=== PATIENT | female | born 1965 | race Caucasian/White ===

== ENCOUNTER → 2017-05-14 | Outpatient (CLI) | payer SELFPAY ==
[~2017-05-14] MED LIST: ADULT LOW DOSE81 M1 PO; ANAPROX DS550 M1 PO; Aldactone PO; Aspirin E.C. PO; CARDURA2 M1 PO; CRESTOR5 MG PO; CYMBALTA60 MG PO; Cymbalta PO; DESYREL100 MG PO; ENDOCET 5-3251 EACH PO; FERROUS SULFATE; FLEXERIL10 MG PO; GLUCOPHAGE500 MG PO; HYDROCHLOROTHIA25 MG PO; IRON325 M1 PO; JANUMET 50/51 TABLET PO; Janumet 50/500 PO; Januvia PO; LISINOPRIL20 MG PO; LOPRESSOR100 M1 PO; Lasix PO; Lopressor PO; MICARDIS20 MG PO; MICARDIS80 MG PO; NAPROSYN500 MG PO; NARCAN4 MG NS; PEPCID40 MG PO; PERCOCET 5/31 TABLET PO; PRILOSEC OTC20 MG PO; PROZAC PO; PROZAC20 MG PO; ROBITUSSIN AC,T10 ML PO; Ultram PO; ZYRTEC10 M2 PO; Zestril,Prinivil PO
== END | disposition home or self-care (01) ==
LOC: RAD 13:13
DX: J06.9 Acute upper respiratory infection, unspecified (principal)
CPT/HCPCS: 71020

== ENCOUNTER 2017-09-18 13:29 | Observation (INO) | payer SELFPAY ==
[~2017-09-18] VITALS: Ht 167.6 cm; Wt 75.3 kg
[~2017-09-18 13:29] MED LIST changes: +CRESTOR10 MG PO; -CRESTOR5 MG PO; -PROZAC20 MG PO; +PROZAC40 MG PO
[2017-09-18 13:59] LABS: HEMATOCRIT 44.8 % (36.0-46.0); HEMOGLOBIN 15.4 G/DL (11.9-15.5); MCH 31.7 PG (29.0-34.0); MCHC 34.4 G/DL (30.0-36.0); MCV 92.2 FL (83-99); PLATELET COUNT 485 K/uL (156-360); RBC DIS.WIDTH-CV 14.4 % (11.8-14.6); RBC DIS.WIDTH-SD 48.2 % (39-53); RED BLOOD COUNT 4.86 M/uL (3.80-5.20); WHITE BLOOD COUNT 8.9 K/uL (4.1-10.2)
[2017-09-18 14:08] LABS: CHLORIDE 97 mEq/L (99-109); POTASSIUM 3.7 mEq/L (3.7-5.4); SODIUM 135 mEq/L (136-147)
[2017-09-18 14:10] LABS: GLUCOSE 121 mg/dL (70-99); TOTAL PROTEIN 8.2 g/dL (6.4-8.3)
[2017-09-18 14:12] LABS: TOTAL BILIRUBIN 0.3 mg/dL (0.0-1.0)
[2017-09-18 14:13] LABS: ALKALINE PHOSPHATASE 64 IU/L (3-129)
[2017-09-18 14:14] LABS: CREATININE 1.4 mg/dL (0.6-1.3); GFR ESTIMATE (CALCULATED) 42 mL/min/
[2017-09-18 14:15] LABS: AST (GOT) 11 IU/L (2-34); UREA NITROGEN (BUN) 30 mg/dL (9-23)
[2017-09-18 14:17] LABS: ALT (GPT) 8 IU/L (3-49)
[2017-09-18 14:22] LABS: QUANTITATIVE HCG < 4.0 MIU/ML
[2017-09-18 14:47] LABS: D-DIMER ELISA < 150.00 ng/mLDDU (<230)
[2017-09-18 15:03] LABS: LIPASE 50 U/L (1.0-51.0)
[2017-09-18 15:07] LABS: TROP-I INTERPRETATION NEGATIVE; TROPONIN-I < 0.01 ng/mL (0.0-0.30)
[2017-09-18 18:01] LABS: APPEARANCE SL.HAZY ((CLEAR)); BILIRUBIN NEGATIVE; BLOOD NEGATIVE; COLOR YELLOW ((YELLOW)); GLUCOSE (STRIP) NEGATIVE; KETONES 80; LEUKOCYTES TRACE; NITRITE NEGATIVE; PROTEIN (STRIP) 30; SPECIFIC GRAVITY 1.035 (1.000-1.030); UROBILINOGEN 0.2 MG/DL (0.2-1.0)
[2017-09-18 18:07] LABS: BACTERIA RARE /HPF; EPITHELIAL CELLS 1+ /HPF; MUCUS TRACE /LPF; RED BLOOD CELLS 0-5 /HPF (0-5); UCUL ADDED? YES
[2017-09-18] MEDS ORDERED: LOPRESSOR25 MG PO (18:23)
[2017-09-18] MEDS ORDERED: ZOCOR40 MG PO (18:24)
[2017-09-18] MEDS ORDERED: MICARDIS40 MG PO (18:25)
[2017-09-18] MEDS ORDERED: KLOR-CON M2020 MEQ PO (18:29)
[2017-09-18] MEDS ORDERED: AMARYL2 MG PO (18:30)
[2017-09-18] MEDS ORDERED: CALCIUM CITRAT1 EA18 PO (18:33)
[2017-09-18] MEDS ORDERED: MICROZIDE12.5 M1 PO (18:43)
[2017-09-18 20:49] LABS: HEMATOCRIT 36.8 % (36.0-46.0); MCH 32.2 PG (29.0-34.0); MCV 94.8 FL (83-99); RBC DIS.WIDTH-CV 14.6 % (11.8-14.6); WHITE BLOOD COUNT 5.5 K/uL (4.1-10.2)
[2017-09-18 20:53] LABS: HEMOGLOBIN 12.5 G/DL (11.9-15.5); RED BLOOD COUNT 3.88 M/uL (3.80-5.20)
[2017-09-18 21:26] LABS: PLAT.SUFFICIENCY ADEQUATE
[2017-09-18 21:27] LABS: PLATELET COUNT 326 K/uL (156-360)
[2017-09-18 21:39] VITALS: BP 109/73
[2017-09-19 00:54] LABS: TROP-I INTERPRETATION NEGATIVE; TROPONIN-I < 0.01 ng/mL (0.0-0.30)
[2017-09-19 03:54] VITALS: BP 98/54
[2017-09-19 05:55] LABS: TROP-I INTERPRETATION NEGATIVE; TROPONIN-I 0.05 ng/mL (0.0-0.30)
[2017-09-19 06:03] LABS: CHLORIDE 107 MEQ/L (99-109); GLUCOSE 97 mg/dL (70-99); POTASSIUM 3.7 MEQ/L (3.7-5.4); SODIUM 139 MEQ/L (136-147); UREA NITROGEN (BUN) 21 mg/dL (9-23)
[2017-09-19 06:09] LABS: CREATININE 0.8 MG/DL (0.6-1.3); GFR ESTIMATE (CALCULATED) > 59 mL/min/
[2017-09-19 07:23] VITALS: BP 113/72
[2017-09-19 11:14] VITALS: BP 104/63
[2017-09-19 15:22] VITALS: BP 94/59
[2017-09-19 19:22] VITALS: BP 82/60
[2017-09-19 22:47] VITALS: BP 112/71
[2017-09-20 03:37] VITALS: BP 114/72
[2017-09-20 09:13] VITALS: BP 112/64
[2017-09-20] MEDS ORDERED: PROTONIX40 MG PO (10:55)
[2017-09-20] MEDS ORDERED: BENTYL20 MG PO (10:55)
[2017-09-20 11:52] LABS: TROP-I INTERPRETATION NEGATIVE; TROPONIN-I 0.01 ng/mL (0.0-0.30)
== END 2017-09-20 13:16 | disposition home or self-care (01) ==
LOC: EME 13:29 → 5WEST 19:33 → EDOF 19:33 → ENRESERV 19:57 → 5WEST 21:27 → ENPENDDIS 09-20 → 5WEST 09-20 13:16
PROVIDERS: Emergency Medicine; Hospitalist; Internal Medicine
DX: R07.9 Chest pain, unspecified (principal); R00.0 Tachycardia, unspecified; R11.2 Nausea with vomiting, unspecified; R06.02 Shortness of breath; R94.4 Abnormal results of kidney function studies; N39.0 Urinary tract infection, site not specified; E86.0 Dehydration; R10.30 Lower abdominal pain, unspecified; I10 Essential (primary) hypertension; E78.5 Hyperlipidemia, unspecified; K21.9 Gastro-esophageal reflux disease without esophagitis; E11.9 Type 2 diabetes mellitus without complications; Z79.4 Long term (current) use of insulin
CPT/HCPCS: 71045; 74176; 80048; 80053; 81003; 82948; 83690; 84484; 84702; 85027; 85379; 87086; 87493; 87502; 93005; 99281; 99285; C9113; G0378; J0696; J1650; J2270; J2405; J7030

== ENCOUNTER 2018-03-22 15:42 | Emergency (ER) | payer SELFPAY ==
[~2018-03-22 15:42] MED LIST changes: +AMARYL2 MG PO; +BENTYL20 MG PO; +CALCIUM CITRAT1 EA18 PO; +KLOR-CON M2020 MEQ PO; +LOPRESSOR25 MG PO; +MICARDIS40 MG PO; +MICROZIDE12.5 M1 PO; +PROTONIX40 MG PO; +ZOCOR40 MG PO
[2018-03-22 16:07] LABS: BASOPHIL (%) 0.4 % (0-1); EOSINOPHIL (%) 2.4 % (0-5); EOSINOPHIL COUNT 0.2 K/uL (0-0.3); IMMATURE GRANULOCYTE (%) 0.4 % (0.0-0.7); LYMPHOCYTE (%) 19.4 % (15-42); LYMPHOCYTE COUNT 1.6 K/uL (1.0-2.8); MCHC 31.6 G/DL (30.0-36.0); MCV 91.8 FL (83-99); MONOCYTE COUNT 0.6 K/uL (0-0.8); NEUTROPHIL (%) 70.4 % (45-76); NEUTROPHIL COUNT 5.8 K/uL (1.8-6.4); PLATELET COUNT 333 K/uL (156-360); RBC DIS.WIDTH-CV 13.2 % (11.8-14.6); RBC DIS.WIDTH-SD 44.8 % (39-53); RED BLOOD COUNT 4.14 M/uL (3.80-5.20); WHITE BLOOD COUNT 8.3 K/uL (4.1-10.2)
[2018-03-22 16:15] LABS: AMYLASE 30 IU/L (1-118); CHLORIDE 111 mEq/L (99-109); POTASSIUM 4.2 mEq/L (3.7-5.4); SODIUM 142 mEq/L (136-147)
[2018-03-22 16:16] LABS: GLUCOSE 176 mg/dL (70-99)
[2018-03-22 16:19] LABS: SERUM ETHYL ALCOHOL < 10 mg/dL
[2018-03-22 16:20] LABS: GFR ESTIMATE (CALCULATED) > 59 mL/min/
[2018-03-22 16:21] LABS: UREA NITROGEN (BUN) 18 mg/dL (9-23)
[2018-03-22 16:28] LABS: QUANTITATIVE HCG < 4.0 MIU/ML
[2018-03-22 17:19] LABS: LIPASE 10 U/L (1.0-51.0)
[2018-03-22] MEDS ORDERED: PERCOCET 5/31 TABLET PO (17:43)
[2018-03-22] MEDS ORDERED: MOTRIN800 MG PO (18:04)
== END 2018-03-22 19:15 | disposition home or self-care (01) ==
LOC: TRA 15:42
PROVIDERS: Emergency Medicine
DX: S42.211A Unspecified displaced fracture of surgical neck of right humerus, initial encounter for closed fracture (principal); S00.11XA Contusion of right eyelid and periocular area, initial encounter; S00.81XA Abrasion of other part of head, initial encounter; V48.2XXA Person on outside of car injured in noncollision transport accident in nontraffic accident, initial encounter; I11.0 Hypertensive heart disease with heart failure; I50.9 Heart failure, unspecified; E11.9 Type 2 diabetes mellitus without complications; Z79.84 Long term (current) use of oral hypoglycemic drugs
CPT/HCPCS: 70450; 70486; 71045; 72125; 73030; 73060; 73070; 80048; 81003; 82150; 83690; 84702; 85025; 86850; 86900; 86901; 90832; 99281; 99285; G0480; J2270; J3010